=== PATIENT | male | born 1985 | race Two or more races ===

== ENCOUNTER → 2022-04-19 | Emergency (ER) | payer OTHER ==
[~2022-04-19] VITALS: Ht 162.6 cm; Wt 63.5 kg
== END | disposition left against medical advice (07) ==
LOC: ER 11:26
DX: Z53.21 Procedure and treatment not carried out due to patient leaving prior to being seen by health care provider (principal)

== ENCOUNTER 2024-05-09 14:38 | Emergency (ER) | payer OTHER ==
[~2024-05-09] VITALS: Ht 177.8 cm; Wt 75.3 kg
[2024-05-09 16:15] LABS: HEMATOCRIT 38.6 % (39.0-48.0); MEAN CELL VOLUME 90.2 fL (80.0-100.00); MEAN CORPUSCULAR HEMOGLOBIN 30.5 pg (27.00-32.0); MEAN CORPUSCULAR HGB CONC 33.8 g/dl (32.0-36.0); PLATELET COUNT 292 K/uL (150-450); RED BLOOD COUNT 4.28 M/uL (4.00-6.00); RED CELL DISTRIBUTION WIDTH 14.2 % (11.5-14.5)
[2024-05-09 16:29] LABS: URINE APPEARANCE Clear; URINE BILIRRUBIN Negative (NEGATIVE); URINE BLOOD Negative; URINE COLOR Yellow; URINE GLUCOSE Negative (NEGATIVE); URINE KETONE Negative (NEGATIVE); URINE LEUKOCYTE Negative; URINE NITRATE Negative; URINE PROTEIN Negative (NEGATIVE); URINE UROBILINOGEN 0.2 E.U./dl
[2024-05-09 16:33] LABS: URINE BACTERIA 11.3 uL (0.0-1933); URINE RBC 7.4 uL (0.0-20.8); URINE WBC 2.1 uL (0.0-23.2)
[2024-05-09 16:45] LABS: COCAINE POSITIVE (NEGATIVE); METHADONE NEGATIVE (NEGATIVE); OPIATES NEGATIVE (NEGATIVE); THC ( Cannabinoids) POSITIVE (NEGATIVE)
[2024-05-09 17:04] LABS: ALBUMIN 3.5 gm/dL (3.4-5.0); BILIRUBIN TOTAL 0.29 mg/dL (0.3-1.2); CALCIUM 9.4 mg/dL (8.5-10.1); CREATININE SERUM 0.84 mg/dL (0.70-1.30); GFR 100.7; GLOBULINA 3.3 G/DL (2.4-3.5); POTASSIUM 4.27 mEq/L (3.5-5.1); TOTAL PROTEIN 6.8 gm/dL (6.4-8.2)
[2024-05-14 16:00] LABS: HEMATOCRIT 41.7 % (39.0-48.0); HEMOGLOBIN 14.3 g/dL (13-16.00); MEAN CELL VOLUME 90.2 fL (80.0-100.00); MEAN CORPUSCULAR HEMOGLOBIN 30.8 pg (27.00-32.0); MEAN CORPUSCULAR HGB CONC 34.2 g/dl (32.0-36.0); PLATELET COUNT 280 K/uL (150-450); RED BLOOD COUNT 4.63 M/uL (4.00-6.00); RED CELL DISTRIBUTION WIDTH 14.2 % (11.5-14.5)
[2024-05-14 16:07] LABS: PH,URINE 6.5 (5.0-8.0); URINE APPEARANCE Clear; URINE BILIRRUBIN Negative (NEGATIVE); URINE BLOOD Negative; URINE COLOR Yellow; URINE GLUCOSE Negative (NEGATIVE); URINE KETONE Negative (NEGATIVE); URINE LEUKOCYTE Negative; URINE NITRATE Negative; URINE PROTEIN Negative (NEGATIVE)
[2024-05-14 16:11] LABS: URINE BACTERIA 65.4 uL (0.0-1933); URINE EPITHELIAL CELLS 1.5 uL (0.0-38.8); URINE RBC 2.7 uL (0.0-20.8); URINE WBC 1.8 uL (0.0-23.2)
[2024-05-14 16:28] LABS: COCAINE NEGATIVE (NEGATIVE); METHADONE NEGATIVE (NEGATIVE); OPIATES NEGATIVE (NEGATIVE); THC ( Cannabinoids) NEGATIVE (NEGATIVE)
[2024-05-14 16:35] LABS: ALBUMIN 3.4 gm/dL (3.4-5.0); BILIRUBIN TOTAL 0.3 mg/dL (0.3-1.2); CALCIUM 9.6 mg/dL (8.5-10.1); CREATININE SERUM 0.82 mg/dL (0.70-1.30); GFR 103.54; GLOBULINA 3.5 G/DL (2.4-3.5); POTASSIUM 4.57 mEq/L (3.5-5.1); TOTAL PROTEIN 6.9 gm/dL (6.4-8.2)
== END 2024-05-14 22:18 | disposition designated cancer center or children's hospital (05) ==
LOC: ER 14:38
PROVIDERS: Emergency Medicine; General Practice
DX: X83.8XXA Intentional self-harm by other specified means, initial encounter (principal); R45.851 Suicidal ideations; F20.89 Other schizophrenia; F14.10 Cocaine abuse, uncomplicated; F12.10 Cannabis abuse, uncomplicated; Z20.822 Contact with and (suspected) exposure to COVID-19

== ENCOUNTER 2024-05-28 05:02 | Emergency (ER) | payer OTHER ==
[~2024-05-28] VITALS: Ht 177.8 cm; Wt 74.8 kg
[2024-05-28 06:21] LABS: HEMATOCRIT 41.3 % (39.0-48.0); HEMOGLOBIN 13.8 g/dL (13-16.00); MEAN CELL VOLUME 91.7 fL (80.0-100.00); MEAN CORPUSCULAR HEMOGLOBIN 30.7 pg (27.00-32.0); MEAN CORPUSCULAR HGB CONC 33.5 g/dl (32.0-36.0); PLATELET COUNT 232 K/uL (150-450)
[2024-05-28 07:09] LABS: INR 1.04; PARTIAL THROMBOPLASTIN TIME 25.6 SECONDS (22.0-34.0); PROTHROMBIN TIME 11.3 SECONDS (9.0-11.5)
[2024-05-28 07:25] LABS: ALBUMIN 3.9 gm/dL (3.4-5.0); ALKALINE PHOSPHATASE 72 U/L (50-136); ALT/SGPT 38 U/L (12-78); ANION GAP 8 (10.0-20.0); AST/SGOT 28 U/L (15-37); BILIRUBIN TOTAL 0.41 mg/dL (0.3-1.2); BILIRUBIN,CONJUGATED < 0.10 mg/dL (0.0-0.2); BILIRUBIN,UNCONJUGATED 0.31 mg/dL (0.0-0.6); BLOOD UREA NITROGEN 18 mg/dL (7-18); BUN CREA RATIO 21 (7.0-25.0); CALCIUM 9.6 mg/dL (8.5-10.1); CARBON DIOXIDE 32 mEq/L (21-32); CHLORIDE 105 mmol/L (98-107); CREATININE SERUM 0.86 mg/dL (0.70-1.30); GLOBULINA 3.8 G/DL (2.4-3.5); GLUCOSE FASTING 85 mg/dL (65-100); OSMOLALITY SERUM 282 MOSM/KG (275-295); POTASSIUM 4.05 mEq/L (3.5-5.1); SODIUM 141 mmol/L (136-145); TOTAL PROTEIN 7.7 gm/dL (6.4-8.2)
[2024-05-28 09:12] LABS: PH,URINE 5.5 (5.0-8.0); URINE APPEARANCE Clear; URINE BILIRRUBIN Negative (NEGATIVE); URINE BLOOD Negative; URINE COLOR Dark Yellow; URINE GLUCOSE Negative (NEGATIVE); URINE KETONE Negative (NEGATIVE); URINE LEUKOCYTE Negative; URINE NITRATE Negative; URINE PROTEIN Negative (NEGATIVE)
[2024-05-28 09:16] LABS: URINE BACTERIA 76.8 uL (0.0-1933); URINE EPITHELIAL CELLS 8.6 uL (0.0-38.8); URINE RBC 5.1 uL (0.0-20.8); URINE WBC 9.2 uL (0.0-23.2)
[2024-05-28 13:49] LABS: COCAINE POSITIVE (NEGATIVE); METHADONE NEGATIVE (NEGATIVE); OPIATES NEGATIVE (NEGATIVE); THC ( Cannabinoids) NEGATIVE (NEGATIVE)
[2024-05-28] MEDS ORDERED: ACETAMINOPHEN 325 MG TABLET PO PRN (16:30)
== END 2024-05-29 20:50 | disposition designated cancer center or children's hospital (05) ==
LOC: ER 05:04
PROVIDERS: General Practice
DX: R45.851 Suicidal ideations (principal); Z20.822 Contact with and (suspected) exposure to COVID-19